=== PATIENT | female | born 1995 | race American Indian/Alaskan Native ===

== ENCOUNTER 2017-11-21 16:14 | Emergency (ER) | payer SELFPAY ==
[2017-11-21 20:49] LABS: Basophils % (Auto) 0.4 % (0.0-1.8); Eosinophils # (Auto) 0.1 K/mm3 (0.0-0.4); Eosinophils % (Auto) 0.8 % (0.0-4.3); Hematocrit 40.1 % (30.3-42.9); Hemoglobin 13.3 gm/dl (10.1-14.3); Lymphocytes # (Auto) 2.7 K/mm3 (1.2-5.4); Lymphocytes % (Auto) 32.8 % (13.4-35.0); Mean Corpuscular HGB Conc 33 % (30-34); Mean Corpuscular Hemoglobin 30 pg (28-32); Mean Corpuscular Volume 91 fl (79-97); Monocytes # (Auto) 0.6 K/mm3 (0.0-0.8); Monocytes % (Auto) 7.2 % (0.0-7.3); Platelet Count 174 K/mm3 (140-440); Red Blood Count 4.43 M/mm3 (3.65-5.03); Red Cell Distribution Width 12.9 % (13.2-15.2)
[2017-11-21 21:32] LABS: Alanine Aminotransferase 7 units/L (7-56); Albumin 4.4 g/dL (3.9-5); BUN/Creatinine Ratio 20; Blood Urea Nitrogen 12 mg/dL (7-17); Calcium 9.3 mg/dL (8.4-10.2); Hemolysis Index 11
--- NOTE | 2017-11-22 06:58 | Emergency Department Report ---
HPI - General Chief Complaint: Abdominal Pain Time Seen by Provider: 11/22/17 06:12 - HPI HPI: 22-year-old female presents to the emergency department with the complaint of seeing some substance within her stool that looks like worms. This is been going on over the past week. She also says that she appears to make a small volume of stool in comparison to what she eats and/or consumes. She has an intermittent lower quadrant abdominal pains but they're usually very short, sharp and transient. She denies any vaginal bleeding, vaginal discharge, dysuria, fever. She has no past medical history. She does not have a primary care physician. She says that she went to a pharmacy to try and by something to treat her suspected worms in the stool but was told that she should go to see a physician instead by the pharmacist. No recent travel, especially internationally. She says it is always possible that she ate something that was undercooked. ED Past Medical Hx - Past Medical History Previous Medical History?: No - Surgical History Past Surgical History?: No - Social History Smoking Status: Never Smoker Substance Use Type: Alcohol - Medications Home Medications: Home Medications Medication Instructions Recorded Confirmed Last Taken Type Nitrofurantoin Mccracken/M-Cryst 100 mg PO BID #14 capsule 11/22/17 Unknown Rx [Macrobid CAP] ED Review of Systems ROS: Stated complaint: ABDOMINAL PAIN/WORMS Other details as noted in HPI Comment: All other systems reviewed and negative Constitutional: denies: chills, fever Eyes: denies: eye pain, eye discharge, vision change ENT: denies: ear pain, throat pain Respiratory: denies: cough, shortness of breath, wheezing Cardiovascular: denies: chest pain, palpitations Gastrointestinal: abdominal pain. denies: nausea, vomiting Genitourinary: denies: urgency, dysuria, discharge Musculoskeletal: denies: back pain, joint swelling, arthralgia Skin: denies: rash, lesions Neurological: denies: headache, weakness, paresthesias Physical Exam - Physical Exam Vital Signs: Vital Signs 11/21/17 11/22/17 11/22/17 18:37 04:40 06:19 Temperature 98.1 F 97.6 F Pulse Rate 92 H 71 Respiratory 16 18 18 Rate Blood Pressure 111/74 120/74 O2 Sat by Pulse 100 100 99 Oximetry Physical Exam: GENERAL: The patient is well-developed well-nourished. HENT: Normocephalic. Atraumatic. Patient has moist mucous membranes. EYES: Extraocular motions are intact. Pupils equal reactive to light bilaterally. NECK: Supple. Trachea is midline. CHEST/LUNGS: Clear to auscultation. There is no respiratory distress noted. HEART/CARDIOVASCULAR: Regular. There is no tachycardia. There is no murmur. ABDOMEN: Abdomen is soft, nontender. No guarding or rebound tenderness. Patient has normal bowel sounds. There is no abdominal distention. SKIN: There is no rash. There is no edema. There is no diaphoresis. NEURO: The patient is awake, alert, and oriented. The patient is cooperative. The patient has no focal neurologic deficits. The patient has normal speech. MUSCULOSKELETAL: There is no tenderness or deformity. There is no limitation range of motion. There is no evidence of acute injury. ED Course Vital Signs 11/21/17 11/22/17 11/22/17 18:37 04:40 06:19 Temperature 98.1 F 97.6 F Pulse Rate 92 H 71 Respiratory 16 18 18 Rate Blood Pressure 111/74 120/74 O2 Sat by Pulse 100 100 99 Oximetry ED Medical Decision Making - Lab Data Result diagrams: 11/21/17 20:31 11/21/17 20:31 - Radiology Data Radiology results: image reviewed interpreted by me: Abdominal x-ray shows nonspecific nonobstructive bowel gas. - Medical Decision Making Patient presents with 2 complaints. She has some intermittent lower abdominal discomfort but none since been seeing her in the emergency department. A soft, nontoxic, non-rigid abdomen. Labs are unremarkable except for a very mild UTI with 11 WBCs and nitrites positive. She'll be treated with Macrobid. Abdominal x-ray does not show any acute process. The patient also complains of some substance in her stool appearing similar to worms. She does not produce a lot of stool and the amount that she was able to give us is not enough to test for ova and parasites. Patient says that she cannot give any further sample at this time. However the patient does not appear to be in any acute distress or require admission. She'll be discharged home with referrals for primary care and gastroenterology. She has been encouraged to collect stool samples over the next day or so so that it can be tested either at the emergency department or with one of the referred physicians. She has also been encouraged to return to the emergency Department with any worsening of the abdominal pain or any acute distress. As the patient does not have any current discomfort, any fever or leukocytosis, I did not feel that any further imaging was necessary at this time. - Differential Diagnosis UTI, colitis, cramping, appendicitis, constipation Critical Care Time: No Critical care attestation.: If time is entered above; I have spent that time in minutes in the direct care of this critically ill patient, excluding procedure time. ED Disposition Clinical Impression: Intermittent abdominal pain UTI (urinary tract infection) Qualifiers: Urinary tract infection type: acute cystitis Hematuria presence: without hematuria Qualified Code(s): N30.00 - Acute cystitis without hematuria Disposition: TO HOME OR SELFCARE Is pt being admited?: No Condition: Stable Instructions: Abdominal Pain (ED) Additional Instructions: I have given a referral for primary care and I have given you a referral for a local talent rep, Dr. Carrillo. Take the antibiotics as prescribed for your mild urinary tract infection. I recommend collecting your stool to either bring back to the emergency department or to bring to the primary care physician or talent rep so that he can be tested for any eggs, worms and /or parasites. Return to the emergency Department with any worsening of your abdominal pain or with any acute distress. Prescriptions: Nitrofurantoin Mccracken/M-Cryst [Macrobid CAP] 100 mg PO BID #14 capsule Referrals: LIZETTE PEREZ MD [Primary Care Provider] - 3-5 Days ZOFIA CARRILLO MD [Staff Physician] - 3-5 Days [facility] [Outside] - 3-5 Days Time of Disposition: 07:57
[2017-11-22 07:15] LABS: Bacteria,Urine 3+ /HPF (Negative); Bilirubin,Urine NEG (Negative); Blood,Urine NEG (Negative); Color,Urine Yellow (Yellow); Mucus,Urine 2+ /HPF; Nitrite,Urine POS (Negative); Protein,Urine <15 mg/dL mg/dL (Negative); Urobilinogen,Urine < 2.0 mg/dL (<2.0)
[2017-11-22 07:20] LABS: HCG Qualitative,Urine Negative (Negative)
--- NOTE | 2017-11-22 07:47 | XRay Report ---
ABDOMEN, 2 views: History: Abdominal pain. There is no evidence of free air beneath the diaphragms. The gas pattern within the abdomen is unremarkable. There is no evidence of bowel dilatation, significant air-fluid levels, or pathologic calcifications. Organ shadows are unremarkable. IMPRESSION: Unremarkable abdomen.
[2017-11-22] MEDS ORDERED: MACROBID PO ONE (07:50)
[2017-11-22 07:57] VITALS: BP 108/68
== END 2017-11-22 08:23 | disposition home or self-care (01) ==
LOC: ED 16:14
DX: N39.0 Urinary tract infection, site not specified (principal)
CPT/HCPCS: 36415; 74019; 80053; 81001; 81025; 85025; 99284

== ENCOUNTER 2018-12-30 10:54 | Emergency (ER) | payer OTHER ==
[2018-12-30 10:59] VITALS: BP 118/80
[2018-12-30 11:50] LABS: Bacteria,Urine 3+ /HPF (Negative); Bilirubin,Urine NEG (Negative); Blood,Urine NEG (Negative); Color,Urine Yellow (Yellow); Mucus,Urine 3+ /HPF; Protein,Urine <15 mg/dL mg/dL (Negative); Urobilinogen,Urine < 2.0 mg/dL (<2.0)
[2018-12-30 11:54] LABS: HCG Qualitative,Urine Negative (Negative)
--- NOTE | 2018-12-30 12:32 | Emergency Department Report ---
ED Female HPI - General Chief complaint: Urogenital-Female Stated complaint: VAGINAL IRRITATION Time Seen by Provider: 12/30/18 11:55 Source: patient Mode of arrival: Ambulatory Limitations: No Limitations - History of Present Illness Initial comments: 23-year-old female presents to ED with complaint of dyspareunia and vaginal discharge. Patient denies dysuria, vaginal bleeding. MD Complaint: vaginal discharge Radiation: non-radiating Severity: mild Quality: sharp Consistency: intermittent Worsens with: intercourse Are you Now?: No Associated Symptoms: vaginal discharge. denies: vaginal bleeding, abdominal pain, nausea/vomiting, fever/chills, dysuria - Related Data Sexually active: Yes Previous Rx's Medication Instructions Recorded Last Taken Type Nitrofurantoin Whitley/M-Cryst 100 mg PO BID #14 capsule 11/22/17 Unknown Rx [Macrobid CAP] metroNIDAZOLE [Flagyl] 500 mg PO Q12HR 7 Days #14 tab 12/30/18 Unknown Rx Allergies Allergy/AdvReac Type Severity Reaction Status Date / Time No Known Allergies Allergy Verified 12/30/18 10:55 ED Review of Systems ROS: Stated complaint: VAGINAL IRRITATION Other details as noted in HPI Comment: All other systems reviewed and negative Constitutional: denies: fever Gastrointestinal: denies: abdominal pain, nausea, vomiting Genitourinary: discharge, dyspareunia ED Past Medical Hx - Past Medical History Previous Medical History?: No - Surgical History Past Surgical History?: No - Social History Smoking Status: Never Smoker Substance Use Type: None - Medications Home Medications: Home Medications Medication Instructions Recorded Confirmed Last Taken Type Nitrofurantoin Whitley/M-Cryst 100 mg PO BID #14 capsule 11/22/17 Unknown Rx [Macrobid CAP] metroNIDAZOLE [Flagyl] 500 mg PO Q12HR 7 Days #14 tab 12/30/18 Unknown Rx ED Physical Exam - General Limitations: No Limitations General appearance: alert, in no apparent distress - Head Head exam: Present: atraumatic, normocephalic - Eye Eye exam: Present: normal appearance - ENT ENT exam: Present: mucous membranes moist - Neck Neck exam: Present: normal inspection - Respiratory Respiratory exam: Present: normal lung sounds bilaterally. Absent: respiratory distress - Cardiovascular Cardiovascular Exam: Present: regular rate, normal rhythm - GI/Abdominal GI/Abdominal exam: Present: soft. Absent: distended, tenderness - External exam: Present: normal external exam. Absent: lesions Speculum exam: Present: vaginal discharge, cervical discharge. Absent: vaginal bleeding Bi-manual exam: Present: normal bi-manual exam. Absent: cervical motion tendernes, adnexal tenderness, uterine tenderness - Extremities Exam Extremities exam: Present: normal inspection - Neurological Exam Neurological exam: Present: alert, oriented X3 - Psychiatric Psychiatric exam: Present: normal affect, normal mood - Skin Skin exam: Present: warm, dry, intact, normal color. Absent: rash ED Course Vital Signs 12/30/18 10:58 Temperature 98.6 F Pulse Rate 80 Respiratory 18 Rate Blood Pressure 118/80 O2 Sat by Pulse 100 Oximetry ED Medical Decision Making - Medical Decision Making - discharge on exam - no CMT - wet prep shows clue cells - rx for flagyl - [employer] outpatient follow-up advised - return precautions given - Differential Diagnosis BV, yeast, GC, Chlam, cervical pathology Critical care attestation.: If time is entered above; I have spent that time in minutes in the direct care of this critically ill patient, excluding procedure time. ED Disposition Clinical Impression: Bacterial vaginosis Disposition: DC-01 TO HOME OR SELFCARE Is pt being admited?: No Condition: Stable Instructions: Bacterial Vaginosis (ED) Prescriptions: metroNIDAZOLE [Flagyl] 500 mg PO Q12HR 7 Days #14 tab Referrals: RANSOM YINAREYNOLDS STATION MD KITTY [Primary Care Provider] - 3-5 Days [facility] [Provider Group] - 3-5 Days ROBE HOLBROOK MD [Staff Physician] - 3-5 Days Forms: STI Treatment and Prevention Time of Disposition: 13:42
[2018-12-30] MEDS ORDERED: ROCEPHIN IM ONE (12:38)
[2018-12-30] MEDS ORDERED: ZITHROMAX PO ONE (12:38)
[2018-12-30] MEDS ORDERED: XYLOCAINE 1% MPF 5 mL INFILTRATI ONE (12:38)
== END 2018-12-30 13:56 | disposition home or self-care (01) ==
LOC: ED 10:54
DX: N76.0 Acute vaginitis (principal)
CPT/HCPCS: 81001; 81025; 87210; 87591; 96372; 99284; J0696